=== PATIENT | male | born 1965 | race Caucasian/White ===

== ENCOUNTER 2024-11-25 16:43 | Inpatient (IN) | payer OTHER, SELFPAY ==
[2024-11-25] VITALS (29 sets, daily range): BP systolic 72–212; BP diastolic 51–134; BMI 47.9
[2024-11-25 13:42] LABS: % Basophils 0.3 % (0-2); % Eosinophils 2.2 % (0-6); % Immature Granulocytes 0.3 % (0-0.5); % Lymphocytes 16.1 % (20.5-51.1); % Monocytes 9.5 % (1.7-9.3); % Neutrophils 71.6 % (42.2-75.2); Absolute Eosinophils 0.2 10^3/uL (0-0.7); Absolute Lymphocytes 1.4 10^3/uL (1.2-3.4); Absolute Monocytes 0.9 10^3/uL (0.1-0.6); Absolute Neutrophils 6.4 10^3/uL (1.4-6.5); Hematocrit 49.2 % (39.0-52.0); Hemoglobin 17.1 g/dL (13.0-18.0); Mean Corp Hgb Conc. 34.8 g/dL (33.0-37.0); Mean Corpuscular Hgb 31.2 pg (27.0-31.0); Mean Corpuscular Volume 89.8 fL (80.0-94.0); Mean Platelet Volume 10.9 fL (7.4-10.4); Nucleated Red Blood Cells % 0 % (-); Platelet Count 193 10^3/uL (130-400); Red Blood Cell Count 5.48 10^6/uL (4.70-6.10); Red Cell Dist. Width 12.4 % (11.5-14.5)
[2024-11-25 13:59] LABS: ALT (SGPT) 31 U/L (0-50); AST (SGOT) 28 U/L (17-59); Albumin 4.5 g/dl (3.5-5.0); Alkaline Phosphatase 85 U/L (38-126); Blood Urea Nitrogen 18 mg/dl (9-20); Calcium 9.2 mg/dl (8.4-10.2); Carbon Dioxide 26 mmol/L (22-30); Chloride 97 mmol/L (98-107); Glucose 410 mg/dl (70-99); Sodium 133 mmol/L (135-145); Total Bilirubin 1.3 mg/dl (0.2-1.3); Total Protein 6.8 g/dl (6.3-8.2); eGFR > 60.00
[2024-11-25 14:07] LABS: Troponin I 0.167 ng/ml
--- NOTE | 2024-11-25 15:03 | ED.GENMED ---
History of Present Illness
<Pedro Tanner MD - Last Filed: 11/25/24 15:05>
General
Chief Complaint: Cardiac Symptoms
Time Seen by Provider: 11/25/24 14:39
<Pee Mixon Jr., PA-C - Last Filed: 11/27/24 21:59>
General
Source: patient
Exam Limitations: none
Nursing documentation reviewed up to this point in time: agreed with
History of Present Illness
History of Present Illness:
59-year-old male with no known medical history however has not seen a doctor in over 10 years presenting to the emergency department today with concerns of exertional chest pain some shortness of breath and diaphoresis over the past week worsening
today. Denies significant smoking history does occasionally drink.
Review of Systems
<Pee Mixon Jr., PA-C - Last Filed: 11/27/24 21:59>
Review of Systems
Allergies reviewed?: Yes
All Other Systems: ROS reviewed and negative except as documented in HPI and ROS
Phy Exam
<Pee Mixon Jr., PA-C - Last Filed: 11/27/24 21:59>
Physical Exam
Physical Exam:
GENERAL: Alert , in no apparent distress
EYE: pupils equal and reactive
NECK: Supple, no significant adenopathy.
ENT: o/p clr, mmm.
CARDIAC: Regular rate and rhythm .
LUNGS: Clear breath sounds bilaterally, no acute respiratory distress, no wheezes/rales/rhonchi
ABDOMEN: Soft, without focal tenderness, no r/g, no cvat
NEUROLOGICAL: Alert and oriented, no focal neuro deficits
SKIN: Warm and dry, skin intact.
MUSCULOSKELETAL: No edema, well perfused.
PSYCH: Normal and appropriate interaction.
Course
<Pedro Tanner MD - Last Filed: 11/25/24 15:05>
Orders/Labs/Results
Orders:
Orders
11/25/24
DH LUMASON 5mL Routine
11/25/24 13:12
ECG [Electrocardiogram (*1)] Urgent
Reason for Study: Chest Pain
EKG- Treatment ONCE
11/25/24 13:24
Complete Blood Count/With Diff Urgent
Comprehensive Metabolic Panel Urgent
Troponin I Urgent
11/25/24 14:[address] Non Medication Order As Directed
Physician Order: PTT 6 hours after initial start of Heparin infusion
Above order entered?: Yes
11/25/24 14:57
Heparin 4,000 units IV NOW STA
11/25/24 14:[address] Non Medication Order As Directed
Physician Order: PTT 6 hours after initial start of Heparin infusion
Above order entered?: Yes
11/25/24 14:59
Chest X-ray Portable [CR Chest Portable - 1 View] Urgent
Comment:
Reason For Exam: cp
Reason Study Needs to be Portable: Patient Unstable
11/25/24 15:00
Heparin 89422 Units/250 ml 25,000 units in 250 ml IV PER PROTOCOL
Weight to be used for heparin protocol in kilograms (kg):: 146.9
Protocol:: Cardiac Tx/Acute Coronary
PTT Goal Range to be used:: PTT 73 to 111 seconds
Order type:: Initial
INITIAL Infusion Dose (UNITS/KG/hr) & then follow protocol:: 12 units/kg/hr
Infusion Dose in UNITS/hr & then follow protocol (UNITS/hr):: 1,000
INFUSION RATE in mL/hr & then follow protocol (mL/hr):: 10
PTT less than or equal to 64 seconds:: Increase rate by 200 units/hr (+ 2 mL/hr)
PTT 64.1 to 72.9 seconds:: Increase rate by 100 units/hr (+ 1 mL/hr)
PTT 73 to 111 seconds:: Target Range. No change in rate.
PTT 111.1 to 130.9 seconds:: Decrease rate by 100 units/hr (- 1 mL/hr)
PTT 131 to 199.9 seconds:: HOLD for 1 hr. Then decrease rate by 200 units/hr (- 2 mL/hr)
PTT greater than or equal to 200 seconds:: HOLD for 2 hrs & Notify Provider. Then decrease by 200 units/hr (-
2 mL/hr)
Lab follow-up:: Each change, PTT q6h until 2 consecutive are therapeutic. Then PTT
daily.
Nitroglycerin 100 mg/250 ml [Nitroglycerin Premix] 100 mg in 250 ml IV PER PROTOCOL
Initial dose in mcg/min, then titrate:: 5
Titrate to keep:: SBP < 160 mmHg
Titrate by mcg/min:: 5 mcg/min, may increase by 10 mcg/min if dose > 20 mcg/min
Frequency of titrations (minutes):: every 3-5 minutes
Maximum dose in mcg/min:: 200
Begin to taper infusion when:: Remained at goal for 2hrs
Taper by mcg/min:: 5 mcg/min
Frequency of taper (minutes) if patient maintains goal:: 30
Taper to off?: Yes
If infusion off & no longer maintaining goal:: Contact Provider
11/25/24 15:12
Echo 2D MMode Color/Doppler [Echo 2D MMode Color/Doppler] Urgent
Reason for Study: unstable angina
Cardiology Consult: Dayday Reid
PTT Urgent
Comment: Obtain baseline before beginning heparin infusion if not already collected
11/25/24 15:27
EKG [Electrocardiogram (*1)] Urgent
Reason for Study: Chest Pain
EKG- Treatment ONCE
11/25/24 15:50
Metoprolol [Lopressor] 5 mg IV Q6
11/25/24 16:35
Admit/Transfer Patient As Directed
Co-Sign Provider:
Level of Care: Inpatient admission
Assign to:: IVU
Physician / Group: praful
Diagnosis: NSTEMI
Reason for Hospitalization: NSTEMI
Expected length of stay greater than two midnights?: Yes
ELOS- Estimated Length of Stay in days: 3
I certify the patient meets the requirements for IP care: Yes
PRN Pain Medication Management As Directed
May give lesser potent ordered pain med per pt: Yes
preference::
Protocol:: Medication orders for pain may be administered in a
manner that supports deferring to patient preference
when the pt is:
- Requesting an ordered lesser potent pain medication.
Least to most potent pain medications are defined
as: acetaminophen < NSAID < tramadol < opioids
(morphine, oxycodone, hydromorphone).
- Requesting a lesser dose of the same medication IF
ORDERED.
- Requesting a less intrusive route of administration
if both routes are prescribed by the provider (PO <
IV).
11/25/24 16:36
Code Status As Directed
Resuscitation Status: Full Code
11/25/24 16:39
Heparin Protocol- PTT Orders As Directed
PTT per Heparin protocol: -Obtain CBC and baseline PTT - if not already collected.
-Obtain PTT 6 hours from start of infusion. Then, every 6 hours until 2 consecutive
PTT's are therapeutic. Then, PTT Daily.
-With each rate change, obtain PTT every 6 hours until 2 consecutive PTT's are
therapeutic. Then, PTT Daily.
Notify MD As Directed
Notify physician if: PTT is greater than or equal to 200.
11/25/24 18:00
Metoprolol [Lopressor] 5 mg IV Q6
11/25/24 18:54
Dextrose 50%-Water [Dextrose 50% Syringe] 12.5 grams IV [id number] PRN
Glucagon [GlucaGen] 1 mg IM PRN PRN
Pantoprazole [Protonix] 40 mg PO DAILY
11/25/24 18:54
CARDIOLOGY CONSULT Routine
Consulting Provider: Dayday Reid
Was physician already notified: Yes
Diabetes Management by Nurse Practitioner Routine
Consulting Provider: Robina Keyes
Was provider already notified?: Yes
Activity As Directed
Activity Level: As Tolerated
Bedside Glucose Monitoring As Directed
Frequency: AC&HS
Additional Instructions:: Change to q6h if pt on TPN, tube feeding or not eating
INT (Intravenous Needle Therapy) As Directed
Comment: maintain peripheral IV access
Intake/ Output As Directed
Frequency: Per unit guidelines
Vital Signs As Directed
Frequency: q4h
Weight As Directed
Frequency: Daily
11/25/24 20:38
Troponin I Q3H
Comment: at admit & Q3H for 3 total including ED draws, obtain ECG with each level
11/26/24 02:59
Basic Metabolic Panel IN AM
Cardiovascular Evaluation IN AM
11/26/24 07:30
Insulin Aspart Corrective Mod [Novolog Flexpen-Moderate Resistance] See Protocol SC AC
11/27/24 04:31
Basic Metabolic Panel IN AM
Complete Blood Count/No Diff Q2D
Comment: notify provider: Platelet count < 130,000 or decrease by 50% from baseline
Abnormal Lab Results
11/25/24
13:24
MCH 31.2 H pg
(27.0-31.0)
MPV 10.9 H fL
(7.4-10.4)
Absolute Monos (auto) 0.9 H 10^3/uL
(0.1-0.6)
Lymphocytes % 16.1 L %
(20.5-51.1)
Monocytes % 9.5 H %
(1.7-9.3)
Sodium 133 L mmol/L
(135-145)
Chloride 97 L mmol/L
(98-107)
Glucose 410 H mg/dl
(70-99)
Troponin I 0.167 H* ng/ml
11/25/24 13:24
11/25/24 13:24
Vital Signs
Initial and Last Documented VS:
Initial Vital Signs
Temp Pulse Resp BP Pulse Ox
98.6 F 103 16 212/123 98
11/25/24 13:18 11/25/24 13:18 11/25/24 13:18 11/25/24 13:18 11/25/24 13:18
Last Documented Vital Signs
Temp Pulse Resp BP Pulse Ox
98.1 F 75 18 128/74 96
11/27/24 12:11 11/27/24 12:11 11/27/24 12:11 11/27/24 12:11 11/27/24 12:11
<Pee Mixon Jr., PA-C - Last Filed: 11/27/24 21:59>
Orders/Labs/Results
Orders:
Orders
11/25/24
DH LUMASON 5mL Routine
11/25/24 13:12
ECG [Electrocardiogram (*1)] Urgent
Reason for Study: Chest Pain
EKG- Treatment ONCE
11/25/24 13:24
Complete Blood Count/With Diff Urgent
Comprehensive Metabolic Panel Urgent
Troponin I Urgent
11/25/24 14:[address] Non Medication Order As Directed
Physician Order: PTT 6 hours after initial start of Heparin infusion
Above order entered?: Yes
11/25/24 14:57
Heparin 4,000 units IV NOW STA
11/25/24 14:[address] Non Medication Order As Directed
Physician Order: PTT 6 hours after initial start of Heparin infusion
Above order entered?: Yes
11/25/24 14:59
Chest X-ray Portable [CR Chest Portable - 1 View] Urgent
Comment:
Reason For Exam: cp
Reason Study Needs to be Portable: Patient Unstable
11/25/24 15:00
Heparin 42030 Units/250 ml 25,000 units in 250 ml IV PER PROTOCOL
Weight to be used for heparin protocol in kilograms (kg):: 146.9
Protocol:: Cardiac Tx/Acute Coronary
PTT Goal Range to be used:: PTT 73 to 111 seconds
Order type:: Initial
INITIAL Infusion Dose (UNITS/KG/hr) & then follow protocol:: 12 units/kg/hr
Infusion Dose in UNITS/hr & then follow protocol (UNITS/hr):: 1,000
INFUSION RATE in mL/hr & then follow protocol (mL/hr):: 10
PTT less than or equal to 64 seconds:: Increase rate by 200 units/hr (+ 2 mL/hr)
PTT 64.1 to 72.9 seconds:: Increase rate by 100 units/hr (+ 1 mL/hr)
PTT 73 to 111 seconds:: Target Range. No change in rate.
PTT 111.1 to 130.9 seconds:: Decrease rate by 100 units/hr (- 1 mL/hr)
PTT 131 to 199.9 seconds:: HOLD for 1 hr. Then decrease rate by 200 units/hr (- 2 mL/hr)
PTT greater than or equal to 200 seconds:: HOLD for 2 hrs & Notify Provider. Then decrease by 200 units/hr (-
2 mL/hr)
Lab follow-up:: Each change, PTT q6h until 2 consecutive are therapeutic. Then PTT
daily.
Nitroglycerin 100 mg/250 ml [Nitroglycerin Premix] 100 mg in 250 ml IV PER PROTOCOL
Initial dose in mcg/min, then titrate:: 5
Titrate to keep:: SBP < 160 mmHg
Titrate by mcg/min:: 5 mcg/min, may increase by 10 mcg/min if dose > 20 mcg/min
Frequency of titrations (minutes):: every 3-5 minutes
Maximum dose in mcg/min:: 200
Begin to taper infusion when:: Remained at goal for 2hrs
Taper by mcg/min:: 5 mcg/min
Frequency of taper (minutes) if patient maintains goal:: 30
Taper to off?: Yes
If infusion off & no longer maintaining goal:: Contact Provider
11/25/24 15:12
Echo 2D MMode Color/Doppler [Echo 2D MMode Color/Doppler] Urgent
Reason for Study: unstable angina
Cardiology Consult: Dayday Reid
PTT Urgent
Comment: Obtain baseline before beginning heparin infusion if not already collected
11/25/24 15:27
EKG [Electrocardiogram (*1)] Urgent
Reason for Study: Chest Pain
EKG- Treatment ONCE
11/25/24 15:50
Metoprolol [Lopressor] 5 mg IV Q6
11/25/24 16:35
Admit/Transfer Patient As Directed
Co-Sign Provider:
Level of Care: Inpatient admission
Assign to:: IVU
Physician / Group: praful
Diagnosis: NSTEMI
Reason for Hospitalization: NSTEMI
Expected length of stay greater than two midnights?: Yes
ELOS- Estimated Length of Stay in days: 3
I certify the patient meets the requirements for IP care: Yes
PRN Pain Medication Management As Directed
May give lesser potent ordered pain med per pt: Yes
preference::
Protocol:: Medication orders for pain may be administered in a
manner that supports deferring to patient preference
when the pt is:
- Requesting an ordered lesser potent pain medication.
Least to most potent pain medications are defined
as: acetaminophen < NSAID < tramadol < opioids
(morphine, oxycodone, hydromorphone).
- Requesting a lesser dose of the same medication IF
ORDERED.
- Requesting a less intrusive route of administration
if both routes are prescribed by the provider (PO <
IV).
11/25/24 16:36
Code Status As Directed
Resuscitation Status: Full Code
11/25/24 16:39
Heparin Protocol- PTT Orders As Directed
PTT per Heparin protocol: -Obtain CBC and baseline PTT - if not already collected.
-Obtain PTT 6 hours from start of infusion. Then, every 6 hours until 2 consecutive
PTT's are therapeutic. Then, PTT Daily.
-With each rate change, obtain PTT every 6 hours until 2 consecutive PTT's are
therapeutic. Then, PTT Daily.
Notify MD As Directed
Notify physician if: PTT is greater than or equal to 200.
11/25/24 18:00
Metoprolol [Lopressor] 5 mg IV Q6
11/25/24 18:54
Dextrose 50%-Water [Dextrose 50% Syringe] 12.5 grams IV [id number] PRN
Glucagon [GlucaGen] 1 mg IM PRN PRN
Pantoprazole [Protonix] 40 mg PO DAILY
11/25/24 18:54
CARDIOLOGY CONSULT Routine
Consulting Provider: Dayday Reid
Was physician already notified: Yes
Diabetes Management by Nurse Practitioner Routine
Consulting Provider: Robina Keyes
Was provider already notified?: Yes
Activity As Directed
Activity Level: As Tolerated
Bedside Glucose Monitoring As Directed
Frequency: AC&HS
Additional Instructions:: Change to q6h if pt on TPN, tube feeding or not eating
INT (Intravenous Needle Therapy) As Directed
Comment: maintain peripheral IV access
Intake/ Output As Directed
Frequency: Per unit guidelines
Vital Signs As Directed
Frequency: q4h
Weight As Directed
Frequency: Daily
11/25/24 20:38
Troponin I Q3H
Comment: at admit & Q3H for 3 total including ED draws, obtain ECG with each level
11/26/24 02:59
Basic Metabolic Panel IN AM
Cardiovascular Evaluation IN AM
11/26/24 07:30
Insulin Aspart Corrective Mod [Novolog Flexpen-Moderate Resistance] See Protocol SC AC
11/27/24 04:31
Basic Metabolic Panel IN AM
Complete Blood Count/No Diff Q2D
Comment: notify provider: Platelet count < 130,000 or decrease by 50% from baseline
Abnormal Lab Results
11/25/24
13:24
MCH 31.2 H pg
(27.0-31.0)
MPV 10.9 H fL
(7.4-10.4)
Absolute Monos (auto) 0.9 H 10^3/uL
(0.1-0.6)
Lymphocytes % 16.1 L %
(20.5-51.1)
Monocytes % 9.5 H %
(1.7-9.3)
Sodium 133 L mmol/L
(135-145)
Chloride 97 L mmol/L
(98-107)
Glucose 410 H mg/dl
(70-99)
Troponin I 0.167 H* ng/ml
11/25/24 13:24
11/25/24 13:24
Vital Signs
Initial and Last Documented VS:
Initial Vital Signs
Temp Pulse Resp BP Pulse Ox
98.6 F 103 16 212/123 98
11/25/24 13:18 11/25/24 13:18 11/25/24 13:18 11/25/24 13:18 11/25/24 13:18
Last Documented Vital Signs
Temp Pulse Resp BP Pulse Ox
98.1 F 75 18 128/74 96
11/27/24 12:11 11/27/24 12:11 11/27/24 12:11 11/27/24 12:11 11/27/24 12:11
<Pee Mixon Jr., PA-C - Last Filed: 11/27/24 21:59>
MDM/Problems Addressed
MDM/Problems Addressed:
59-year-old male presenting to the emergency department today with concerns of chest pain. On arrival very hypertensive elevated heart rate EKG with nonspecific changes potential slight ST elevations in the anterior leads. Labs were obtained
showing elevated troponin level of 0.167. Cardiology was immediately contacted patient was started on heparin and nitro drip. Otherwise asymptomatic here. Already took aspirin prior to arrival took 2 full dose tabs. Admitted to medicine for
further monitoring and cardiology intervention.
<Pee Mixon Jr., PA-C - Last Filed: 11/27/24 21:59>
*Critical Care Note
Total Time (30-74mins, 75-104mins- exclusive of procedures): Not Applicable
ED Attending Note
<Pedro Tanner MD - Last Filed: 11/25/24 15:05>
ED Attending Note
Patient seen and examined by attending physician: Yes
I performed the substantive portion of visit, reviewed & personally made and approve the management plan that is documented in note by myself or YADIRA.: Yes
ED Attending Note:
59-year-old male complaining of exertional chest pain that started days ago. Last episode was coming into the ER with exertion. Currently asymptomatic. Some shortness of breath. Some pain in the arm. Does not go to physicians. On exam GENERAL:
Alert and oriented in no apparent distress
EYE: Orbits right lateral gaze with the right eye.
CARDIAC: Regular rate and rhythm without any obvious murmurs.
LUNGS: Clear breath sounds,normal
ABDOMEN: Soft, without focal tenderness or distention. Significant elevated BMI
NEUROLOGICAL: Alert and oriented , grossly non-focal
SKIN: Warm and dry, no rash or lesion, no discoloration, skin intact.
MUSCULOSKELETAL: No edema,no deformity.Good color
PSYCH: Normal and appropriate interaction.
EKG with suspicion for recent FL. Very poor R wave progression. Questionable residual elevation. Troponin indeterminate. Currently asymptomatic. Clearly warrants admission and cardiac involvement. Cardiology contacted and EKG sent to them.
Heparin aspirin. Significant hypertension. Will start nitroglycerin.
-
Portions of this chart may have been created with voice recognition software.� Occasional wrong word or��sound alike� substitutions may have occurred due to the inherent limitations of voice recognition software.
Discharge Plan
Departure
Patient Disposition: Admit
Date of Disposition: 11/25/24
Time of Disposition: 15:28
Admit to: Telemetry
Admit to doctor: Lisa
Presentation/result/management discussed w/ accepting MD/DO: Hospitalist
Patient with high blood pressure during this ER visit?: No
Condition: Fair
Covid-19: Not Applicable
Discharge Problem:
Non-ST elevation FL (NSTEMI)
Interventions
Interventions:
*Risk Screen - Suicide Last Done: 11/25/24 22:26
*General Assessment Last Done: 11/25/24 14:58
*Neglect/Abuse Screening Last Done: 11/25/24 13:18
*ED- Fall Risk Assessment Last Done: 11/25/24 14:58
*ED COVID-19 Vaccine History Last Done: 11/25/24 22:26
*Nursing Disposition Last Done: 11/25/24 17:29
ED- Pulmonary Assessment Last Done: 11/25/24 15:40
ED- Cardiac Assessment Last Done: 11/25/24 15:40
Discharge Date and Time
Discharge Date/Time: 11/25/24 17:29
[2024-11-25] MEDS: HEPARIN 25000 UNITS/250 ML IV (15:32)
[2024-11-25] MEDS: HEPARIN 4000 UNITS IV (15:32)
[2024-11-25] MEDS: NITROGLYCERIN PREMIX 250 IV (15:33)
[2024-11-25 15:36] LABS: APTT 24.4 Sec (23.4-35.0)
--- NOTE | 2024-11-25 15:36 | CON.CAR ---
Addendum entered and electronically signed by Dayday Reid MD 11/25/24 16:23:
I saw and examined the patient.
The BELLOWS ASSEMBLER or PA's note was reviewed and I agree with the note.
Comment: General: Well developed, well nourished in NAD.
Neck: Supple, no JVD, HJR, carotids +2 B/L, no bruits bilaterally.
Heart: Non displaced PMI, RRR, no murmurs, No S3, S4, no rubs.
Lungs: Clear to auscultation bilaterally, no wheeze, rhonchi, rubs bilaterally,
normal expiratory phase.
Extremities: No clubbing, cyanosis or edema bilaterally.
Neuro: Grossly nonfocal, awake, alert and oriented x3.
Zhen has a history of hypertension, anemia, obesity, suspected sleep apnea, suspected diabetes, family history of CAD. He presents with chest discomfort for the past 3 days. It occurred while golfing. Symptom lasted approximately 20 minutes 2
days ago. He came to the ER continued symptoms. ECG with possible anterior HI which may have been subacute. Troponin was elevated and echocardiogram with anterior septal and apical regional wall motion abnormality.
Explained benefits of catheterization and possible stenting in detail with patient and he agrees to proceed. Cath will be done later today if Weatherization Specialist schedule allows. Continue IV heparin. Continue NPO.
Original Note:
Consultation
Consultation Request
Date/Time Consultation Requested: 11/25/2024
Date/Time Consultation Performed: 11/25/2024
Requesting Provider: Pee Mixon PA-C
Performing Provider: Shanti Plaza PA-C for Dr. Dayday Reid
Reason for Consultation: Chest pain, abnormal troponin, hypertension
Medical History
-
History of Present Illness:
Patient is a 59-year-old male who is not seen a medical doctor in over 10 years and is not on any medication prior to arrival who presented to emergency department for 12/11/2024 with exertional chest pain/burning. Patient reports for the last 5
days he started noting exertional chest burning/belching with activity. Initially noted on Thursday evening after he ate and was ambulating around his house. He took some Tums and went to bed. The following morning he went to [employer] and had a
[employer] sandwich and fly a fish sandwich then proceeded to play golf. While playing golf he had recurrent symptoms of chest pressure and tightness associated with mild shortness of breath and diaphoresis. Symptoms resolved at rest. Over the last
couple days he continued to have exertional symptoms and today his symptoms were more intense and lasted longer in duration prompting him to come to emergency department. He reports he took 2 aspirin prior to arrival. Initial blood pressure was
found to be 212/123. EKG showed sinus tachycardia at 109 bpm with poor R wave progression. Patient was given heparin bolus followed by IV heparin drip and nitroglycerin drip started.
Past medical history:
Hypertension
Hyperlipidemia
Morbid obesity
Suspected sleep apnea
Suspected diabetes
Past Medical History
Past Medical History: Other (See HPI)
Past Surgical History: Orthopedic (Left hand surgery, left knee surgery) and Other (Silicone injection of right eye secondary to trauma)
Social History
Tobacco: Other (Chews tobacco)
Alcohol: Occasional (2-3 drinks 5 times a week)
Drug: None
Personal:
Living: With Family
Family History
Family History: CAD (Paternal grandfather and father had heart problems)
Allergies / Home Medications
Allergy/AdvReac Type Severity Reaction Status Date / Time
No Known Allergies Allergy Unverified 06/10/10 07:58
�Medication �Instructions �Recorded �Confirmed �Type
aspirin 81 mg chewable tablet 162 mg PO DAILYPRN PRN chest pain 11/25/24 11/25/24 History
naproxen sodium 220 mg tablet 220 mg PO Q8HPRN PRN mild pain 11/25/24 11/25/24 History
(Obie)
Review of Systems
-
History Source: Patient
All other systems: Negative unless noted
Physical Exam
Vital Signs
Temp Pulse Resp BP Pulse Ox
98.6 F 91 21 180/117 96
11/25/24 13:18 11/25/24 14:48 11/25/24 14:48 11/25/24 14:44 11/25/24 14:48
GEN: No distress, awake, Ox3, morbidly obese
HEENT: supple, anicteric, mmm
LUNGS: CTA, no wheezes/rales
CV: Distant heart tones, reg, tachycardic S1/S2, no murmur, rub or gallop
ABD: soft, BS+, NT/ND, obese and protuberant
EXT: No edema, clubbing or cyanosis
NEURO: Gross non-focal
SKIN: No rash, warm, dry, pink
Lab Results
11/25/24 13:24
11/25/24 13:24
Troponin I 0.167 ng/ml H* 11/25/24 13:24
Impression / Plan
-
PCP: None prior to admission has not seen a physician in over 10 years
Reagent Tender: None prior to arrival, initial consultation Dr. Reid
Impression:
Presents for 11/25/2024 with 5 days of intermittent exertional chest tightness/burning and dyspnea on exertion
NSTEMI
Hypertensive emergency
Diabetes, new diagnosis
Hyperlipidemia
Morbid obesity
Suspected sleep apnea
Echo 11/25/2024: Pending
Plan:
-Presents for 11/25/2024 with 5 days of intermittent exertional chest tightness/burning and dyspnea on exertion
-Patient took 2 aspirin prior to arrival
-NSTEMI with initial troponin 0.167. EKG sinus tachycardia with poor R wave progression. Continue to trend to peak
-Patient currently chest pain-free following IV heparin bolus now drip and IV nitroglycerin drip
-Obtain urgent echo
-Pending results of echocardiogram patient may need urgent cardiac catheterization. This was discussed with the patient at bedside.
-Start IV Lopressor every 6 hours with likely transition to oral beta-nat in next 24 hours
-Keep n.p.o.
-Glucose 410, suspect patient has untreated diabetes. Check hemoglobin A1c
-Check lipids
-Hypertensive emergency, will treat with IV Lopressor and IV nitroglycerin. Will eventually need oral beta-nat, WON-I or ARB
HPI 11/25/2024:
Patient is a 59-year-old male who is not seen a medical doctor in over 10 years and is not on any medication prior to arrival who presented to emergency department for 12/11/2024 with exertional chest pain/burning. Patient reports for the last 5
days he started noting exertional chest burning/belching with activity. Initially noted on Thursday evening after he ate and was ambulating around his house. He took some Tums and went to bed. The following morning he went to [employer] and had a
[employer] sandwich and fly a fish sandwich then proceeded to play golf. While playing golf he had recurrent symptoms of chest pressure and tightness associated with mild shortness of breath and diaphoresis. Symptoms resolved at rest. Over the last
couple days he continued to have exertional symptoms and today his symptoms were more intense and lasted longer in duration prompting him to come to emergency department. He reports he took 2 aspirin prior to arrival. Initial blood pressure was
found to be 212/123. EKG showed sinus tachycardia at 109 bpm with poor R wave progression. Patient was given heparin bolus followed by IV heparin drip and nitroglycerin drip started.
Data Reviewed
-
EKG: Report Reviewed by me, Discussed with Physician, Discussed with Nurse and Discussed with Patient
Labs: Labs Reviewed by me, Discussed with Physician, Discussed with Nurse and Discussed with Patient
Old Records: Reviewed
--- NOTE | 2024-11-25 16:20 | HPS.HSE ---
Addendum entered and electronically signed by Madeleine Piper DO 11/26/24 01:12:
The patient was seen and examined. Reviewed the patient with our nurse practitioner and I agree with her history and physical and assessment and plan of care as per below. Patient is a 59-year-old gentleman who has not been seen by a physician in
over 10 years, not on any medications, with history of hypertension, anemia, obesity, suspected sleep apnea, suspected diabetes, family history of coronary artery disease who presented to emergency department due to exertional chest pain and burning
sensation in his chest. He says that he woke up on Thursday and noted chest pain with ambulation which resolved at rest. Today he noted chest pain that was burning and sharp in his mid chest region associated with shortness of breath. He took 2
aspirin prior to arrival. In the emergency department he had hypertensive emergency with blood pressure 212/123 mmHg and his his troponin was elevated. EKG showed sinus tachycardia at 109 bpm with poor R wave progression. He was initiated on a
heparin drip and nitroglycerin drip and taken to the cardiac catheterization lab. Postcardiac catheterization the patient was initially on a nitroglycerin drip but then his blood pressure went into the 70s systolic. His nitroglycerin drip was
discontinued and his blood pressure improved to the 120 systolic. He says that he still has some substernal chest symptoms that he says have changed in nature and they are no longer burning.
[facility] report shows successful stenting of the ostial to mid LAD with a 4.0 x 22 mm Brodie stent.
Vital signs currently stable and the patient is afebrile
Physical exam showed regular rate and rhythm with no murmurs rubs or gallops on cardiovascular exam, lungs are clear to auscultation bilaterally, abdomen is soft nontender normoactive bowel sounds, neuro exam is grossly intact no focal deficits
# Non-STEMI status post cardiac catheterization with stenting of the proximal to mid LAD.
# Reduced LV EF estimated at 40%
# Hypertensive emergency
# Elevated blood glucose with no formal diagnosis of diabetes, likely new onset diabetes
# Obesity
Plan of care
- Per cardiology recommendation continue uninterrupted dual antiplatelet therapy for 1 year
- The patient will need aggressive blood pressure management and lipid management, holding nitroglycerin drip for now given hypotension
- Check hemoglobin A 1C and cardiovascular profile
-Start sliding scale insulin and monitor glucose closely
-Consultation has been placed to diabetes management with nurse practitioner
- Lipitor 80 mg initiated
- Aspirin and Brilinta initiated
-Coreg 6.25 mg p.o. twice daily initiated
Original Note:
Family Physician
-
Family Physician: * NONE
Chief Complaint
-
chest pain
History of Present Illness
59-year-old male who is not seen a medical doctor in over 10 years and is not on any medication prior to arrival who presented to emergency department for 12/11/2024 with exertional chest pain/burning. On Thursday after eating [employer] breakfast he
noticed chest burning associated with belching and burning. he took Tums. he woke up on Thursday and noted chest pain with walking which resolved with walking. he felt fine yesterday. today he noted chest pain associated with sob. Symptoms resolved at
rest. today his symptoms were more intense and lasted longer which prompted him to come to the ER. he took 2 aspirin prior to arrival. Patient denies any headache, dizzy or syncope. Patient denies any fever, chills, congestion, cough. Patient
denies any abdominal pain, nausea, vomiting or diarrhea. Patient denies dysuria hematuria.
Upon arrival he was hypertensive, elevated Trope. Patient initiated on heparin drip, nitro. Obtain echo at the bedside. Admitting for further management
Medical History
Past Medical History
Past Medical History: Reports Other
Additional Past Medical History:
Hypertension
Hyperlipidemia
Morbid obesity
Past Surgical History: Reports Other
Additional Past Surgical History:
Left hand surgery, left knee surgery
Social History
Tobacco: Other (chew tobaco)
Alcohol: Occasional
Drug: None
Personal:
Living: With Family
Family History
Family History: Not pertinent
Allergies / Home Medications
Allergies reflects when Allergies were last updated in [employer].
Home Medications with original date entered in [employer]
Allergy/Medication List:
Allergies
Allergy/AdvReac Type Severity Reaction Status Date / Time
No Known Allergies Allergy Unverified 06/10/10 07:58
Home Medications
aspirin 81 mg chewable tablet 162 mg PO DAILYPRN PRN chest pain 11/25/24
naproxen sodium 220 mg tablet (Aleve) 220 mg PO Q8HPRN PRN mild pain 11/25/24
Review of Systems
-
Constitutional: Reports No Symptoms
EENT: Reports No Symptoms
Respiratory: Reports Trouble Breathing
Cardiac: Reports Chest Pain
Abdomen/GI: Reports No Symptoms
: Reports No Symptoms
Musculoskeletal: Reports No Symptoms
Skin: Reports No Symptoms
Neurological: Reports No Symptoms
Endocrine: Reports No Symptoms
Hematologic/Lymphatic: Reports No Symptoms
Psych: Reports No Symptoms
Physical Exam
Vital Signs
Vital Signs
Temp Pulse Resp BP Pulse Ox
98.6 F 90 20 170/103 95
11/25/24 13:18 11/25/24 16:15 11/25/24 16:15 11/25/24 16:10 11/25/24 16:15
Physical Exam
General: Well Developed, Well Nourished and No Apparent Distress
HEENT: NormoCephalic, Moist mucous membranes and Atraumatic
Respiratory: Clear
Cardiac: S1/S2 and Regular Rhythm; No Murmur or Rub
GI: Soft, Non Tender, Non Distended and Normal Bowel Sounds; No Organomegaly
Rectal: Deferred by Provider
Musculoskeletal: No Clubbing, No Cyanosis and No Edema
Skin: No Rash
Neuro: AO x 3 and Nonfocal/grossly intact
Psych: Calm
Laboratory Results
-
11/25/24 13:24
11/25/24 13:24
Laboratory Results
APTT 24.4 Sec (23.4-35.0) 11/25/24 15:12
Total Bilirubin 1.3 mg/dl (0.2-1.3) 11/25/24 13:24
AST 28 U/L (17-59) 11/25/24 13:24
ALT 31 U/L (0-50) 11/25/24 13:24
Alkaline Phosphatase 85 U/L (38-126) 11/25/24 13:24
Troponin I 0.167 ng/ml H* 11/25/24 13:24
Data Reviewed
-
Lab Data: Labs Reviewed by me
Impression/Plan
-
# Chest pain likely non-STEMI
- Troponin 0.167
- Cardiology consulted
- Echo
- Heparin and nitro drip
- Aspirin continued
- Chest x-ray pending
- EKG on arrival sinus tachycardia
-Will keep patient n.p.o.
# Hypertension emergency
- Blood pressure elevated in ER
- Start IV Lopressor every 6 hours
-IV nitro continued
# New type 2 diabetes with hyperglycemia
- Blood sugar in 400
- Sliding scale
-regular 10 units sq in ER
-Diabetic PICKERS MATERIAL HANDLERS consulted
# DVT prophylaxis
- Heparin drip
# CODE STATUS
- Full code
[2024-11-25] MEDS: LOPRESSOR 5 MG IV (16:36)
[2024-11-25 18:01] LABS: ACT-LR - POC 295 Seconds (116-155)
--- NOTE | 2024-11-25 18:50 | ITS.CL.CATH ---
Field Organizer - Catheterization
Cardiac Catheterization
Procedure Report:
LEFT HEART CATH AND CORONARY INTERVENTION
Date of Procedure: November 25, 2024
Referring: Dr. Dayday Reid
PROCEDURES:
1. Left heart catheterization with coronary and single-plane left ventriculography
2. Successful stenting of the ostial to mid LAD with a 4.0 x 22 mm Brodie stent that was implanted at nominal pressures and postdilated with a 4.5 mm noncompliant balloon
3. Intravascular ultrasound
INDICATION: This is a 59-year-old gentleman who presented to [facility] for evaluation of new onset substernal chest pressure. He was found to be hypertensive with a blood glucose of 400 mg/dL. He has not seen a doctor in at least 10
years. An echocardiogram was notable for an anterior wall motion abnormality and he is now referred for coronary angiography
ACCESS: Right radial artery, 6 Bulgarian sheath
HEMODYNAMICS (mmHg):
AO (s/d, m) : 153/100, 126
LV (s/d) : 150/18
LVEDP : 25
CORONARY FINDINGS
Dominance: Right
LEFT MAIN: Normal
LEFT ANTERIOR DESCENDING: The LAD arises normally from the left main and has an eccentric 80% stenosis before the origin of first diagonal branch. There is poststenotic dilation of the LAD beyond the stenotic segment. The mid to distal LAD has
only minor irregularities.
RAMUS: Large caliber vessel that bifurcates distally and is widely patent
CIRCUMFLEX: The circumflex is a small caliber nondominant vessel supplying several small obtuse marginal branches.
RIGHT CORONARY: The right coronary artery is a large-caliber dominant vessel that is widely patent over its course
VENTRICULOGRAPHY: Left ventriculography is performed in CAMILO projection. The digital single-plane left ventricular ejection fraction is estimated 40% with anterolateral hypokinesis and apical noted
ANGIOPLASTY PROCEDURE DETAIL: Upon review of the diagnostic catheterization films the decision was made to proceed with percutaneous revascularization of the high-grade stenosis in the proximal LAD. A 180 mg loading dose of ticagrelor was
administered and intravenous heparin was given. The ACT was monitored throughout the procedure. The origin of the left main was cannulated with a 6 Bulgarian EBU 3.75 guiding catheter and a BMW guidewire across the proximal stenosis and was advanced
into the distal vessel. Balloon predilation was performed using a 2.25 mm Euphora balloon. A 4.0 x 22 mm [place] stent was then positioned with angiographic and fluoroscopic guidance. The stent was implanted at nominal pressures. Intravascular
ultrasound was performed, unfortunately, due to an imaging error the images were not stored. The stent was postdilated to high pressures with a 4.5 mm noncompliant balloon with a nice angiographic result
RADIATION SUMMARY: Fluoro Time (min): 13.6, Dose (mGy): 2480, DAP (Gy.cm2) : 181
CONCLUSIONS
1. Successful stenting of proximal to mid LAD with a 4.0 x 22 mm Brodie stent that was implanted at nominal pressures and postdilated with a 4.5 mm noncompliant balloon
2. Mildly reduced LVEF estimate of 40%
RECOMMENDATIONS
1. Uninterrupted dual antiplatelet therapy for 1 year
2. Needs aggressive blood pressure and lipid management
3. New onset diabetes will be managed by hospitalist service
Copy to: Dr. Dayday Reid
[2024-11-25 19:04] LABS: Glucose - Point of Care 283 mg/dl (70-99)
[2024-11-25] MEDS: NSS 500 IV (20:00)
[2024-11-25] MEDS: BRILINTA 90 MG PO (20:49)
[2024-11-25 20:50] LABS: Glucose - Point of Care 271 mg/dl (70-99)
[2024-11-25] MEDS: TYLENOL 650 MG PO (20:50)
[2024-11-25] MEDS: COREG 6.25 MG PO (20:51)
[2024-11-25 21:11] LABS: Troponin I 0.197 ng/ml
--- NOTE | 2024-11-25 21:46 | PTCARENOTE ---
received patient from cath lab radiological technologist at approx 1900. AAOx3. complains of 1/10 middle chest pain. SR on tele 70s-80s. bp 110/82. nitro gtt infusing per protocol. R radial band intact. + pulses. reviewed plan of care with patient and verbalized
understanding. at the bedside
during rounds, at approx 1945, patient states having 3/10 middle chest pain. bp cuff cycled- 78/56. patient states feeling 'a little lightheaded.' IV fluids running. nitro gtt stopped. EKG completed. updated David CEVALLOS. EKGs reviewed. plan of
care discussed. tylenol given, see mar. holding off on nitro gtt per PA.
20:45- Dr. Piper at the bedside and discussed plan of care.
currently-blood pressure 124/79. patient states improved chest pain- 1/10. ambulated to the bathroom with no issues. HR SR 70s.
[2024-11-25] MEDS: PROTONIX 40 MG PO (21:55)
[2024-11-25] MEDS: LIPITOR 80 MG PO (21:55)
--- NOTE | 2024-11-25 23:11 | PTCARENOTE ---
Radial band removed with no issue. patient states feeling much better. states 'no chest pain' at this time. educated patient to inform RN with any new pain. ambulated to the bathroom independently. HR SR 70s. bp 134/78.
[2024-11-26] VITALS (9 sets, daily range): BP systolic 115–175; BP diastolic 68–102; BMI 47.7
[2024-11-26 03:43] LABS: Blood Urea Nitrogen 18 mg/dl (9-20); Calcium 8.9 mg/dl (8.4-10.2); Carbon Dioxide 30 mmol/L (22-30); Chloride 100 mmol/L (98-107); Estimated Creatinine Clearance > 125 ml/min; Glucose 302 mg/dl (70-99); HDL Cholesterol 45 mg/dl; LDL Cholesterol, Calculated 124 mg/dl; Potassium 4.8 mmol/L (3.5-5.1); Sodium 136 mmol/L (135-145); Total Cholesterol 193 mg/dl (50-199); Triglyceride 120 mg/dl (10-149); Very Low Density Lipoprotein 24 mg/dl (0-30); eGFR > 60.00
--- NOTE | 2024-11-26 05:16 | PTCARENOTE ---
pt sleeping comfortably. denies chest pain or SOB. VSS. NSR on the monitor. right radial site dry and intact.
--- NOTE | 2024-11-26 07:30 | W.PN.HOSP.TC ---
Today's Communication/Plan
-
possible D/C pending final card reccs and HgbA1c
Assessment / Plan
Assessment / Plan
59yo M with no PMHx, did not follow with PCP for years came with worsening burning substernal chest pain and exertional SOB for 5 days, found NSTEMI complicated by HTN emergency, underwent cardiac cath on 11/25/24 with stenting of proximal to mid LAD.
Found mildly reduced EF to 40%
A/P:
#NSTEMI
#HTN emergency
#HFmrEF, not in exacerbation
#Mildly dilated aortic root 3.7cm
s/p hep drip
cath done - stented
DAPT for at least 1 year
started BB and ACEi for BP mgmt
#HLD
statin
#Hyperglycemia
concern for new onset DM
DM diet
follow HgbA1c
Outpatient opjhthalm, podiatry and proteinuria assessment then yearly
#Morbid Obesity
BMI 47.7
Counseled on weight loss
DVT ppx lovenox
Full code
I have spent at least 59min reviewing cghart, test resuklts, communication with consultants and providing direct patient care
Anticipated Discharge: Within 24 hours
Subjective/Interval History
-
Date of Service: November 26, 2024
Objective Data
-
Labs:
Laboratory Results
11/25/24 11/26/24
21:32 02:59
APTT Cancelled
Sodium 136
Potassium 4.8
Chloride 100
Carbon Dioxide 30
BUN 18
Creatinine 0.9
Glucose 302 H
Calcium 8.9
Vital Signs:
Vital Signs
Temp Pulse Resp BP Pulse Ox
97.9 F 76 18 145/90 96
11/26/24 03:03 11/26/24 05:15 11/26/24 03:03 11/26/24 02:54 11/26/24 03:03
I&O
11/25/24 11/26/24 11/27/24
06:59 06:59 06:59
Intake Total 980 / 980
Balance 980 / 980
Review of Systems
-
History Source: Patient
All other systems: Reviewed and negative
Physical Exam
-
General: No Apparent Distress and Morbidly Obese
HEENT: Normocephalic
Respiratory: Clear to Auscultation
Cardiac: Regular Rhythm
GI: Soft, Nontender and Nondistended
Musculoskeletal: No Clubbing, No Cyanosis and No Edema
Neuro: Awake, Alert, Oriented and AO x 3
Psych: Calm
[2024-11-26 07:39] LABS: Glucose - Point of Care 229 mg/dl (70-99)
[2024-11-26] MEDS: COREG 6.25 MG PO (08:22)
[2024-11-26] MEDS: PROTONIX 40 MG PO (08:22)
[2024-11-26] MEDS: ZESTRIL 10 MG PO (08:22)
[2024-11-26] MEDS: BRILINTA 90 MG PO ×2 (08:22→20:15)
[2024-11-26] MEDS: LOW STRENGTH ASPIRIN 81 MG PO (08:23)
--- NOTE | 2024-11-26 08:28 | W.PN.CARDCBS ---
Today's Communication / Plan
-
Doing well status post stent
Hypertension remains suboptimal and we will increase Coreg and lisinopril
May need software educator or medications and await hemoglobin A1c
Impression / Plan
-
PCP: None prior to admission has not seen a physician in over 10 years
Core Composer Feeder: None prior to arrival, initial consultation Dr. Reid
Impression:
NSTEMI, peak troponin 0.47
Hypertensive emergency
Diabetes, new diagnosis
Hyperlipidemia
Morbid obesity
Suspected sleep apnea
Echo 11/25/2024: Ejection fraction 40 to 45%, mid anteroseptal, mid septal, mid anterior, and apical hypokinesis. Mildly dilated aortic root 4.4 cm at sinus of Valsalva
Catheterization 11/25/2024: Successful stenting of proximal to mid LAD with 4.0 x 22 mm Brodie stent, ejection fraction 40%
Plan:
He is doing well status post LAD stent on 11/25/2024
Blood pressure remains elevated
Also blood sugars are poorly controlled and await hemoglobin A1c
Stressed compliance of medications with patient
Will increase Coreg and lisinopril for blood pressure
Likely discharge on 11/27
Discussed with patient in detail as well as primary service
HPI 11/25/2024:
Patient is a 59-year-old male who is not seen a medical doctor in over 10 years and is not on any medication prior to arrival who presented to emergency department for 12/11/2024 with exertional chest pain/burning. Patient reports for the last 5
days he started noting exertional chest burning/belching with activity. Initially noted on Thursday evening after he ate and was ambulating around his house. He took some Tums and went to bed. The following morning he went to [employer] and had a
big Mac sandwich and fly a fish sandwich then proceeded to play golf. While playing golf he had recurrent symptoms of chest pressure and tightness associated with mild shortness of breath and diaphoresis. Symptoms resolved at rest. Over the last
couple days he continued to have exertional symptoms and today his symptoms were more intense and lasted longer in duration prompting him to come to emergency department. He reports he took 2 aspirin prior to arrival. Initial blood pressure was
found to be 212/123. EKG showed sinus tachycardia at 109 bpm with poor R wave progression. Patient was given heparin bolus followed by IV heparin drip and nitroglycerin drip started.
Progress Note - Core Composer Feeder
Subjective
Date of Service: November 26, 2024
No chest pain or shortness of breath.
Objective
Labs:
11/25/24 13:24
11/26/24 02:59
Labs
Hgb 17.1 g/dL (13.0-18.0) 11/25/24 13:24
Hct 49.2 % (39.0-52.0) 11/25/24 13:24
Plt Count 193 10^3/uL (130-400) 11/25/24 13:24
APTT Cancelled 11/25/24 21:32
Sodium 136 mmol/L (135-145) 11/26/24 02:59
Potassium 4.8 mmol/L (3.5-5.1) 11/26/24 02:59
BUN 18 mg/dl (9-20) 11/26/24 02:59
Creatinine 0.9 mg/dL (0.7-1.3) 11/26/24 02:59
Glucose 302 mg/dl (70-99) H 11/26/24 02:59
Troponins
11/25/24 11/25/24 11/25/24
13:24 18:54 19:00
Troponin I 0.167 H* Cancelled Cancelled
11/25/24 11/26/24 11/26/24
20:38 00:54 02:59
Troponin I 0.197 H* Cancelled 0.470 H* D
Vital Signs and I&O:
Vital Signs
Temp Pulse Resp BP Pulse Ox
97.9 F 79 18 145/90 95
11/26/24 07:36 11/26/24 07:30 11/26/24 07:36 11/26/24 02:54 11/26/24 07:36
Vital Signs
Temp Pulse Resp BP Pulse Ox
97.9 F 79 18 145/90 95
11/26/24 07:36 11/26/24 07:30 11/26/24 07:36 11/26/24 02:54 11/26/24 07:36
Intake & Output
11/24/24 11/25/24 11/26/24 11/27/24
06:59 06:59 06:59 06:59
Intake Total 980 / 980
Balance 980 / 980
Physical Exam
Physical Exam
General: Well developed, well nourished in NAD.
Neck: Supple, no JVD, HJR, carotids +2 B/L, no bruits bilaterally.
Heart: Non displaced PMI, RRR, no murmurs, No S3, S4, no rubs.
Lungs: Clear to auscultation bilaterally, no wheeze, rhonchi, rubs bilaterally,
normal expiratory phase.
Extremities: No clubbing, cyanosis or edema bilaterally.
Neuro: Grossly nonfocal, awake, alert and oriented x3.
[2024-11-26] MEDS: NOVOLOG FLEXPEN-MODERATE RESISTANCE 3 UNITS SC ×2 (08:46→17:48)
--- NOTE | 2024-11-26 11:35 | W.PN.UPDATE ---
Update Note
Progress Note Update
HgbA1c 11 -needs insulin.
Will start with Glargine 10untis and attempt to establish close f/u by endo upon d/c.
Patient was counseled on TID blood glucose measurment, skip insulin if blood glucose <80 and low carb diet. He was also counseled on hypoglycemia symptoms and advised on mitigation with orange, cranberry or apple non-diabetic juice. Advised to go to
ED with any symptoms.
It seems to be complicated for the patient to understand instrcutions clearly, so will keep insulin regimen as simple as possible with daily injections at this time
[2024-11-26 12:42] LABS: Glucose - Point of Care 261 mg/dl (70-99)
[2024-11-26] MEDS: NOVOLOG FLEXPEN-MODERATE RESISTANCE 5 UNITS SC (13:12)
[2024-11-26] MEDS: LANTUS 0.1 UNITS SC (13:13)
--- NOTE | 2024-11-26 14:49 | PTCARENOTE ---
11/26/24 Received patient from previous shift in bed resting comfortably. Pt on zoning assistant NSR. Afebrile. Pt with no complaints of chest pain, palpitations or shortness of breath. Pt on room air-95%. VSS. Pt' s AM troponin at 1.24 -cardiology
aware, Hbg A1C resulted at 11.0, Attending made aware, endocrine consult placed, diabetic education started by RN-booklet given, instructed on how to check blood glucose and give Insulin. Pt verbalized understanding- education reinforced- Medication
pamphlet given on Lantus. All questions were answered.
[2024-11-26 17:44] LABS: Glucose - Point of Care 217 mg/dl (70-99)
[2024-11-26] MEDS: LIPITOR 80 MG PO (17:48)
[2024-11-26] MEDS: COREG 12.5 MG PO (20:14)
[2024-11-26] MEDS: FLUSH (NSS) 1 FLUSH IV (20:16)
[2024-11-26 21:56] LABS: Glucose - Point of Care 247 mg/dl (70-99)
--- NOTE | 2024-11-27 00:57 | PTCARENOTE ---
Received pt at change of shift resting comfortably in bed. AAOx3. Denies any chest pain or SOB. NSR on the monitor. 70s-80s. BP stable. Ambulated the halls. Reviewed plan of care and list of medications per pt request. Right radial site dry and
intact. Positive pulses. pt verbalized understanding. Comfort measures provided. Call jefferson within reach.
[2024-11-27 04:17] VITALS: BP 140/67
[2024-11-27 04:36] VITALS: BMI 47.9
[2024-11-27 04:51] LABS: Hematocrit 43.3 % (39.0-52.0); Mean Corp Hgb Conc. 34.6 g/dL (33.0-37.0); Mean Corpuscular Hgb 31.1 pg (27.0-31.0); Mean Corpuscular Volume 89.6 fL (80.0-94.0); Mean Platelet Volume 10.6 fL (7.4-10.4); Platelet Count 164 10^3/uL (130-400); Red Blood Cell Count 4.83 10^6/uL (4.70-6.10); Red Cell Dist. Width 12.5 % (11.5-14.5); White Blood Cell Count 7.6 10^3/uL (4.8-10.8)
[2024-11-27 05:21] LABS: Blood Urea Nitrogen 18 mg/dl (9-20); Calcium 9.3 mg/dl (8.4-10.2); Carbon Dioxide 30 mmol/L (22-30); Chloride 101 mmol/L (98-107); Estimated Creatinine Clearance > 125 ml/min; Glucose 254 mg/dl (70-99); Potassium 4.4 mmol/L (3.5-5.1); Sodium 136 mmol/L (135-145); eGFR > 60.00
[2024-11-27 08:04] VITALS: BP 132/93
[2024-11-27] MEDS: PROTONIX 40 MG PO (08:37)
[2024-11-27] MEDS: COREG 12.5 MG PO (08:37)
[2024-11-27] MEDS: BRILINTA 90 MG PO (08:38)
[2024-11-27] MEDS: ZESTRIL 20 MG PO (08:38)
[2024-11-27] MEDS: LOW STRENGTH ASPIRIN 81 MG PO (08:38)
[2024-11-27 08:40] LABS: Glucose - Point of Care 216 mg/dl (70-99)
[2024-11-27] MEDS: NOVOLOG FLEXPEN-MODERATE RESISTANCE 1 UNITS SC (09:35)
[2024-11-27] MEDS: LANTUS 0.15 UNITS SC (09:35)
--- NOTE | 2024-11-27 10:30 | W.PN.CARDCBS ---
Today's Communication / Plan
-
Stable cardiology status for discharge
Follow-up arranged
Impression / Plan
-
PCP: None prior to admission has not seen a physician in over 10 years
Insurance Application Investigator: None prior to arrival, initial consultation Dr. Reid
Impression:
NSTEMI, peak troponin 0.47
Hypertensive emergency
Diabetes, new diagnosis
Hyperlipidemia
Morbid obesity
Suspected sleep apnea
Echo 11/25/2024: Ejection fraction 40 to 45%, mid anteroseptal, mid septal, mid anterior, and apical hypokinesis. Mildly dilated aortic root 4.4 cm at sinus of Valsalva
Catheterization 11/25/2024: Successful stenting of proximal to mid LAD with 4.0 x 22 mm Brodie stent, ejection fraction 40%
Plan:
Stable cardiology status for discharge
Blood pressure remains borderline to mildly elevated but is improved.
Continue Toprol and lisinopril
Will add Jardiance
Primary service addressing diabetes which is very poorly controlled
Ask primary service to send in prescription for Brilinta and Jardiance to assess coverage
Discussed at length his need to stop chewing tobacco, take his medications, and control his blood sugars with medications
He should also enter cardiac rehab
Discussed with primary service as well as nursing
Total visit time 51 minutes including more than half the time spent explaining diagnosis, prognosis, and treatment options
HPI 11/25/2024:
Patient is a 59-year-old male who is not seen a medical doctor in over 10 years and is not on any medication prior to arrival who presented to emergency department for 12/11/2024 with exertional chest pain/burning. Patient reports for the last 5
days he started noting exertional chest burning/belching with activity. Initially noted on Thursday evening after he ate and was ambulating around his house. He took some Tums and went to bed. The following morning he went to [employer] and had a
big Mac sandwich and fly a fish sandwich then proceeded to play golf. While playing golf he had recurrent symptoms of chest pressure and tightness associated with mild shortness of breath and diaphoresis. Symptoms resolved at rest. Over the last
couple days he continued to have exertional symptoms and today his symptoms were more intense and lasted longer in duration prompting him to come to emergency department. He reports he took 2 aspirin prior to arrival. Initial blood pressure was
found to be 212/123. EKG showed sinus tachycardia at 109 bpm with poor R wave progression. Patient was given heparin bolus followed by IV heparin drip and nitroglycerin drip started.
Progress Note - Insurance Application Investigator
Subjective
Date of Service: November 27, 2024
No complaints.
Objective
Labs:
11/27/24 04:31
11/27/24 04:31
Labs
Hgb 15.0 g/dL (13.0-18.0) 11/27/24 04:31
Hct 43.3 % (39.0-52.0) 11/27/24 04:31
Plt Count 164 10^3/uL (130-400) 11/27/24 04:31
APTT Cancelled 11/25/24 21:32
Sodium 136 mmol/L (135-145) 11/27/24 04:31
Potassium 4.4 mmol/L (3.5-5.1) 11/27/24 04:31
BUN 18 mg/dl (9-20) 11/27/24 04:31
Creatinine 0.8 mg/dL (0.7-1.3) 11/27/24 04:31
Glucose 254 mg/dl (70-99) H 11/27/24 04:31
Troponins
11/25/24 11/25/24 11/25/24
13:24 18:54 19:00
Troponin I 0.167 H* Cancelled Cancelled
11/25/24 11/26/24 11/26/24
20:38 00:54 02:59
Troponin I 0.197 H* Cancelled 0.470 H* D
11/26/24
08:45
Troponin I 1.240 H* D
Vital Signs and I&O:
Vital Signs
Temp Pulse Resp BP Pulse Ox
98.0 F 76 18 132/93 97
11/27/24 08:04 11/27/24 08:04 11/27/24 08:04 11/27/24 08:04 11/27/24 08:04
Vital Signs
Temp Pulse Resp BP Pulse Ox
98.0 F 76 18 132/93 97
11/27/24 08:04 11/27/24 08:04 11/27/24 08:04 11/27/24 08:04 11/27/24 08:04
Intake & Output
11/25/24 11/26/24 11/27/24 11/28/24
06:59 06:59 06:59 06:59
Intake Total 980 / 980 120 / 120
Balance 980 / 980 120 / 120
Physical Exam
Physical Exam
General: Well developed, well nourished in NAD.
Neck: Supple, no JVD, HJR, carotids +2 B/L, no bruits bilaterally.
Heart: Non displaced PMI, RRR, no murmurs, No S3, S4, no rubs.
Lungs: Clear to auscultation bilaterally, no wheeze, rhonchi, rubs bilaterally,
normal expiratory phase.
Extremities: No clubbing, cyanosis or edema bilaterally.
Neuro: Grossly nonfocal, awake, alert and oriented x3.
--- NOTE | 2024-11-27 12:01 | W.PN.HOSP.TC ---
Today's Communication/Plan
-
dc
Assessment / Plan
Assessment / Plan
59yo M with no PMHx, did not follow with PCP for years came with worsening burning substernal chest pain and exertional SOB for 5 days, found NSTEMI complicated by HTN emergency, underwent cardiac cath on 11/25/24 with stenting of proximal to mid LAD.
Found mildly reduced EF to 40% and new onset DM. Has Hx of PreDM years ago but never followed with PCP. RN did bedside teaching for glucometer and insuulin injections. COntacted Face Cleaner, who will establish close follow up for the patient
upon d/c. Unfortunately DM BUSHLER not available over the weekend. Patient is comfortable with measuring his blood glucose, DM diet and nightly insulin injections. Hypoglycemia discussed. Medcially stable for d/c home. RX for glucometer, lancets, test
strips and alcohol pads provided.
A/P:
#NSTEMI
#HTN emergency
#HFmrEF, not in exacerbation
#Mildly dilated aortic root 3.7cm
s/p hep drip
cath done - stented
DAPT for at least 1 year
started BB and ACEi for BP mgmt
#HLD
statin
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
gbA1c 11 -needs insulin.
Will start with Glargine 10untis and attempt to establish close f/u by endo upon d/c.
Patient was counseled on TID blood glucose measurment, skip insulin if blood glucose <80 and low carb diet. He was also counseled on hypoglycemia symptoms and advised on mitigation with orange, cranberry or apple non-diabetic juice. Advised to go to
ED with any symptoms.
It seems to be complicated for the patient to understand instrcutions clearly, so will keep insulin regimen as simple as possible with daily injections at this time
concern for new onset DM
DM diet
Outpatient ophthalmic, podiatry and proteinuria assessment then yearly
#Morbid Obesity
BMI 47.7
Counseled on weight loss
DVT ppx lovenox
Full code
I have spent at least 59min reviewing cghart, test resuklts, communication with consultants and providing direct patient care
Anticipated Discharge: Today
Subjective/Interval History
-
Date of Service: November 27, 2024
Objective Data
-
Labs:
Laboratory Results
11/27/24
04:31
WBC 7.6
Hgb 15.0
Hct 43.3
Plt Count 164
Sodium 136
Potassium 4.4
Chloride 101
Carbon Dioxide 30
BUN 18
Creatinine 0.8
Glucose 254 H
Calcium 9.3
Vital Signs:
Vital Signs
Temp Pulse Resp BP Pulse Ox
98.0 F 76 18 132/93 97
11/27/24 08:04 11/27/24 08:04 11/27/24 08:04 11/27/24 08:04 11/27/24 08:04
I&O
11/26/24 11/27/24 11/28/24
06:59 06:59 06:59
Intake Total 980 / 980 120 / 120
Balance 980 / 980 120 / 120
Review of Systems
-
History Source: Patient
All other systems: Reviewed and negative
Physical Exam
-
General: No Apparent Distress and Morbidly Obese
HEENT: Normocephalic
Respiratory: Clear to Auscultation
GI: Soft, Nontender and Nondistended
Neuro: Awake, Alert, Oriented and AO x 3
Psych: Calm
--- NOTE | 2024-11-27 12:06 | W.DCSUMMARY ---
Discharge Summary
Discharge Data
Date of Admission: 11/25/24
Date of Discharge: 11/27/24
-
Pending Results: No
Hospital Course
59yo M with no PMHx, did not follow with PCP for years came with worsening burning substernal chest pain and exertional SOB for 5 days, found NSTEMI complicated by HTN emergency, underwent cardiac cath on 11/25/24 with stenting of proximal to mid LAD.
Found mildly reduced EF to 40% and new onset DM. Has Hx of PreDM years ago but never followed with PCP. RN did bedside teaching for glucometer and insuulin injections. COntacted Victim Advocate, who will establish close follow up for the patient
upon d/c. Unfortunately DM AXMINSTER WEAVER not available over the weekend. Patient is comfortable with measuring his blood glucose, DM diet and nightly insulin injections. Hypoglycemia discussed. Medically stable for d/c home. RX for glucometer, lancets, test
strips and alcohol pads provided.
I have spent at least 59min reviewing chart, test results, communication with consultants and providing direct patient care
Patient was managed for:
#NSTEMI
#HTN emergency
#HFmrEF, not in exacerbation
#Mildly dilated aortic root 3.7cm
#HLD
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
#Morbid Obesity
Discharge Plan
-
Patient Disposition: Home (Routine Discharge)
Discharge Diagnosis/Procedures: NSTEMI
Diet: Low Cholesterol and Diabetic, Carb Controlled
Activity Restrictions/Additional Instructions:
Please call [facility] to get scheduled. P: [phone]
Referrals:
Joanne Quintana MD [Consulting Staff] - in less than 1 week (For diabetes management)
Dayday Reid MD [Active] - in less than 1 week
NONE,* [Family Provider] -
Prescriptions:
New
carvedilol 12.5 mg Tablet
12.5 mg PO BID Qty: 60 0RF
Brilinta 90 mg Tablet
90 mg PO BID Qty: 60 0RF
insulin glargine [Lantus Solostar U-100 Insulin] 100 unit/mL (3 mL) insulin pen
20 unit SC HS Qty: 15 3RF
(DME) pen needle, diabetic [Novofine 32] 32 gauge x 1/4' needle
See Rx Instructions .Route Qty: 100 12RF
Rx Instructions:
As directed
Jardiance 10 mg tablet
10 mg PO DAILY Qty: 30 0RF
Continued
aspirin 81 mg Tablet,Chewable
162 mg PO DAILYPRN PRN (Reason: chest pain)
Discontinued
naproxen sodium [Aleve] 220 mg Tablet
220 mg PO Q8HPRN PRN (Reason: mild pain)
Discharge Orders:
Discharge Patient (As Directed); Ordered 11/27/24
Ordered By: Anil Gonzalez
Care Plan Goals
Care Plan Goals:
Problem: Readiness for enhanced knowledge related to diagnosis and treatment plan
Goal: Understand your diagnosis and treatment plan needs, including medications if applicable.
Instructions: Know your diagnosis, underlying causes and treatment plan options, including medications if applicable. Consult with your health care team to learn about your diagnosis and treatment plan, including medications if applicable.
Discharge Date and Time
Print Language: GHANAIAN
--- NOTE | 2024-11-27 12:08 | CM ---
Addendum entered by Ayanna Cotton 11/28/24 15:54:
spoke to pt on the phone yesterday prior to dc, he is agreeable to the med prices.
Original Note:
priced meds with pts perscript plan- [facility]- [phone] ID#[id number]. brilinta is $50/month, i confirmed [facility] it is [facility] stock [facility]. Yordy will need a prior auth- i was told the prior auth dept is not in the office until
thursday- after the prior auth approval his cost is $50/mo as well will give pt a 30 day free Jardiace coupon to fill today.
[2024-11-27 12:11] VITALS: BP 128/74
[2024-11-27] MEDS: NOVOLOG FLEXPEN-MODERATE RESISTANCE SC (14:58)
== END 2024-11-27 14:59 | disposition home or self-care (01) | DRG 322 ==
LOC: IVU 16:43
PROVIDERS: Internal Medicine Interventional Cardiology; Physician Assistant; Registered Nurse; ADMITTING PHYSICIAN Internal Medicine; ATTENDING PHYSICIAN Internal Medicine; CONSULT PHYSICIAN Internal Medicine Cardiovascular Disease; EMERGENCY PHYSICIAN Emergency Medicine
PROC: 4A023N7 Measurement of Cardiac Sampling and Pressure, Left Heart, Percutaneous Approach (ICD-10-PCS; 2024-11-25)
PROC: B2151ZZ Fluoroscopy of Left Heart using Low Osmolar Contrast (ICD-10-PCS; 2024-11-25)
PROC: B2111ZZ Fluoroscopy of Multiple Coronary Arteries using Low Osmolar Contrast (ICD-10-PCS; 2024-11-25)
PROC: 02703DZ Dilation of Coronary Artery, One Artery with Intraluminal Device, Percutaneous Approach (ICD-10-PCS; 2024-11-25)
DX: I21.4 Non-ST elevation (NSTEMI) myocardial infarction (principal); I16.1 Hypertensive emergency; I50.22 Chronic systolic (congestive) heart failure; Z68.42 Body mass index [BMI] 45.0-49.9, adult; I11.0 Hypertensive heart disease with heart failure; I77.810 Thoracic aortic ectasia; E78.5 Hyperlipidemia, unspecified; E11.65 Type 2 diabetes mellitus with hyperglycemia; E66.01 Morbid (severe) obesity due to excess calories; D64.9 Anemia, unspecified; Z82.49 Family history of ischemic heart disease and other diseases of the circulatory system; Z72.0 Tobacco use
CPT/HCPCS: 71045; 80048; 80053; 80061; 82962; 83036; 84484; 85025; 85027; 85347; 85730; 92978; 93005; 93306; 93458; 96365; 96366; 96367; 99285; C1725; C1753; C1769; C1874; C1894; C9600; Q9967

== ENCOUNTER → 2025-08-21 13:11 | Outpatient (REF) | payer OTHER, SELFPAY | LOC: RCS 13:11 | PROVIDERS: ATTENDING PHYSICIAN Internal Medicine Cardiovascular Disease; FAMILY PHYSICIAN Internal Medicine | DX: I25.5 Ischemic cardiomyopathy (principal) | CPT/HCPCS: 93306 ==